=== PATIENT | male | born 1965 | race Caucasian/White ===

== ENCOUNTER 2017-10-22 07:57 | Emergency (ER) | payer OTHER ==
[~2017-10-22] VITALS: Ht 180.3 cm; Wt 79.8 kg
[2017-10-22] MEDS ORDERED: COLCHICINE0.6 MG PO (08:28)
[2017-10-22 08:45] VITALS: BP 156/104
== END 2017-10-22 08:45 | disposition home or self-care (01) ==
LOC: ER 07:57
DX: M10.9 Gout, unspecified (principal)